=== PATIENT | female | born 1975 | race Caucasian/White ===

== ENCOUNTER 2018-03-28 18:05 | Emergency (ER) | payer OTHER, SELFPAY ==
[2018-03-28 18:11] VITALS: BP 125/71; PULSE 75; RESP 14; TEMP 36.8; O2SAT 96
--- NOTE | 2018-03-28 18:38 | ED.GENADUL_ITS ---
Discharge Plan Discharge Details Chief Complaint: RashLesion Primary Care Provider: [facility] ED Provider: Asher Lewis Home Meds and New Rx's Prescriptions: No Action venlafaxine [Effexor XR] 150 mg Capsule,Extended Release 24hr 225 mg PO HS RF: 0 aripiprazole [Abilify] 5 mg Tablet 5 mg PO HS RF: 0 fenofibrate nanocrystallized 145 mg Tablet 145 mg PO HS RF: 0 furosemide 20 mg Tablet 20 mg PO QAM RF: 0 budesonide [Pulmicort Flexhaler] 90 mcg/actuation Aerosol Powdr Breath Activated 1 puff Inhalation PRN PRNRF: 0 albuterol sulfate 90 mcg/actuation Hfa Aerosol Inhaler 2 puff Inhalation PRN PRNRF: 0 Medical Decision Making MDM Narrative Medical decision making narrative: 42-year-old female presents emerged from today with a new onset of the petechial rash over 2 days time. Has not been ill and she denies any new medications. Her exam is notable for fairly diffuse petechial rash but no headache, vomiting , abdominal pain, or report of changes to stools. 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 Patient had repeat blood draw obtained and has repeat platelet count of 5000. Her hematocrit is otherwise unremarkable. BUN, creatinine, LFTs are reassuring without evidence of hemolysis. I discussed the case with on-call hematology at [facility], Dr. Burdick. She states the patient may have drug-induced versus autoimmune/idiopathic thrombocytopenia. She recommends adding LDH, HIV testing, peripheral smear. She recommends admission to the hospital with pulse dose steroids up to 40 mg per day of Decadron for 4 days and then steroid taper. She recommends repeat platelet counts in the morning, and does not feel there is indication for transfusion given the patient's lack of other symptoms. Patient lives in [place], [place], and is followed by Dr. Hailey Greene who referred her to the ER today. She requests transfer to her home hospital. I was able to discuss the case with Dr. Verdin who graciously accepted patient in transfer. Patient states she will refuse ambulance transfer and drive directly to the hospital with her . HPI - General Adult General Date/Time Provider Initiated Documentation: 03/28/18 18:16 . Limitations to Documentation: no limitations . Information obtained by: patient . History of Present Illness 42 year old F presents to the emergency department with the chief complaint of Rash, described as mild, and is localized to the chest, back, abdomen, upper extremity and lower extremity. Patient started experiencing this day(s) and it has been constant. No relieving factors improve symptom(s), No exacerbating factors reported . Patient did receive the following treatments prior to arrival, none HPI Narrative: Petechial rash: This is a 42-year-old female who lives in [facility]. She has 2 days of the gradual onset of a diffuse petechial rash that is been essentially asymptomatic. She was evaluated at primary care physician's office this afternoon, screening blood work was obtained, the patient separately left her home to drive to [facility] to watch her son's play football. She was called by her on-call primary care physician and referred to the nearest hospital due to low platelet count. Records were received and show platelet count of 1. Patient denies new medications. She has not had any recent illnesses. Related Data Home Medications Medication Instructions Recorded Confirmed albuterol sulfate 2 puff INHALATION PRN PRN 03/28/18 03/28/18 aripiprazole [Abilify] 5 mg PO HS 03/28/18 03/28/18 budesonide [Pulmicort Flexhaler] 1 puff INHALATION PRN PRN 03/28/18 03/28/18 fenofibrate nanocrystallized 145 mg PO HS 03/28/18 03/28/18 furosemide 20 mg PO QAM 03/28/18 03/28/18 venlafaxine [Effexor XR] 225 mg PO HS 03/28/18 03/28/18 Allergies Allergy/AdvReac Type Severity Reaction Status Date / Time No Known Allergies Allergy Unverified 03/28/18 19:13 Review of Systems Review of Systems 8 systems reviewed and otherwise neg PFSH Social History Smoking/Tobacco Use Status: Never Exam Narrative Exam Narrative: GEN: awake, alert, oriented 3. Pleasant, well groomed, interactive. HEAD: Normocephalic, atraumatic ENT: Mucous membranes moist, oropharynx unremarkable, External ear exam unremarkable, R ext ear canal with petechiae EYES: PERRL, EOMI NECK: Full ROM, no OCTAVIANO, no menigismus CHEST/RESP: Nontender, clear to auscultation bilateral, no wheeze/rhonchi/rales CARDIOVASCULAR: RRR, no murmur, rub lew. 2+ Rad pulse bilateral ABDOMEN: Soft, nontender, no mass. +Bowel sounds EXT: Full ROM, no edema SKIN: petechiae present on extremities and trunk, few in orophayrnx Neuro: Grossly normal neurologic exam, conversant, interactive. Psych: Speech fluent, thoughts congruent, affect normal
[2018-03-28 19:14] LABS: Abs Immature Grans 0.04 k/cumm (0.0-0.09); Absolute Basophil Count 0.03 k/cumm (0.0-0.2); Absolute Lymphocyte Count 2.06 k/cumm (1.2-3.4); Absolute Monocyte Count 0.62 k/cumm (0.11-0.7); Absolute Neutrophil Count 4.92 k/cumm (1.2-6.7); Basophils % 0.4; Eosinophils % 2.5; HCT 39.6 % (36.0-46.0); HGB 13.2 g/dL (12.0-15.5); Immature Grans % 0.5; Lymphocytes % 26.2; Mean Corp. HGB Concentration 33.3 g/dL (32.0-36.0); Mean Corpuscular Hemoglobin 30.4 pg (27.0-33.0); Mean Corpuscular Volume 91.2 fL (80-95); Mean Platelet Volume 12.3 fL (8.0-11.0); Monocytes % 7.9; Neutrophils % 62.5; RBC 4.34 m/cumm (4.00-5.20); White Blood Cell Count 7.87 k/cumm (4.4-10.8)
[2018-03-28 19:18] LABS: INR 1.1 (1.0-3.5); Prothrombin Time 11.1 sec (9.3-10.8)
[2018-03-28 19:31] LABS: Albumin 3.6 g/dL (3.4-5.0); Anion Gap 8.7 mmol/L (3-11); CO2 27.3 mmol/L (21.0-32.0); CREATININE 0.87 mg/dL (0.55-1.02); Chloride 105 mmol/L (98-107); Potassium 3.8 mmol/L (3.5-5.1); Sodium 141 mmol/L (136-145)
[2018-03-28 19:40] LABS: Platelet Count 5 x1000/uL (130-400)
[2018-03-28 19:43] LABS: Bilirubin Negative (Negative); Blood Negative (Negative); Clarity Sl Cloudy; Glucose Negative (Negative); Ketones Negative (Negative); Leukocyte Esterase Negative (Negative); Nitrite Negative (Negative); Specific Gravity 1.015 (1.005-1.025); pH 7.5 (5-8)
[2018-03-28 20:02] LABS: ALT 114 U/L (12-78); AST 47 U/L (15-37); Alkaline Phosphatase 68 U/L (46-116); BUN 11 mg/dL (7-18); Bilirubin, Total 0.4 mg/dL (0.2-1.0); Calcium 9.2 mg/dL (8.5-10.1); Glucose 97 mg/dL (70-100); Total Protein 7.4 g/dL (6.4-8.2)
[2018-03-28 20:31] VITALS: BP 106/66; PULSE 68; RESP 16; TEMP 37; O2SAT 95
[2018-03-28] MEDS: Dexamethasone 4 MG TAB 10 MG PO (20:34)
[2018-03-28 20:53] LABS: LDH 253 U/L (81-234)
--- NOTE | 2018-03-28 21:19 | NUR.NOTE ---
Nursing Note: Pt to be D/C'd with IV insyte in place as per Dr Lewis. Pt is to self transport to another facility for further treatment with IV intact as per Dr Lewis
[2018-03-28 21:22] VITALS: BP 138/80; PULSE 72; RESP 18; TEMP 36.8; O2SAT 99
[2018-03-31 11:11] LABS: HIV-1/2 Ag & Ab Screen Negative (NEGAT)
== END 2018-03-28 21:29 | disposition short-term general hospital (02) ==
PROVIDERS: Emergency Provider Emergency Medicine
DX: D69.6 Thrombocytopenia, unspecified (principal); R21 Rash and other nonspecific skin eruption
CPT/HCPCS: 36415; 80053; 86850; 86900; 86901; 87389; 99285; 81003; 83615; 85025; 85610; 99284; J8540